=== PATIENT | male | born 1980 | race Caucasian/White ===

== ENCOUNTER 2017-03-01 01:05 | Emergency (ER) | payer SELFPAY ==
[~2017-03-01] VITALS: Ht 190.5 cm; Wt 85.0 kg
[2017-03-01 01:14] VITALS: BP 159/83; PULSE 96; RESP 16; TEMP 97.7; O2SAT 100
== END 2017-03-01 02:58 | disposition left against medical advice (07) ==
LOC: NED 01:05
DX: R53.1 Weakness (principal); Z53.21 Procedure and treatment not carried out due to patient leaving prior to being seen by health care provider
CPT/HCPCS: 99281